=== PATIENT | female | born 1990 | race Asian ===

== ENCOUNTER → 2024-02-01 09:07 | Outpatient (REF) | payer OTHER, SELFPAY | LOC: PNTC 09:07 | PROVIDERS: ATTENDING PHYSICIAN Nurse Practitioner Family | DX: Z32.01 Encounter for pregnancy test, result positive (principal) | CPT/HCPCS: 76801; 76817 ==

== ENCOUNTER → 2024-02-22 07:14 | Outpatient (REF) | payer OTHER, SELFPAY | LOC: PNTC 07:14 | PROVIDERS: ATTENDING PHYSICIAN Obstetrics & Gynecology | DX: Z36.0 Encounter for antenatal screening for chromosomal anomalies (principal); Z36.82 Encounter for antenatal screening for nuchal translucency | CPT/HCPCS: 36415; 76801; 76813 ==

== ENCOUNTER → 2024-03-21 08:50 | Outpatient (REF) | payer OTHER, SELFPAY | LOC: PNTC 08:50 | PROVIDERS: ATTENDING PHYSICIAN Obstetrics & Gynecology | DX: Z36.0 Encounter for antenatal screening for chromosomal anomalies (principal); O09.519 Supervision of elderly primigravida, unspecified trimester | CPT/HCPCS: 76805 ==

== ENCOUNTER → 2024-04-18 08:13 | Outpatient (REF) | payer OTHER, SELFPAY | LOC: PNTC 08:13 | PROVIDERS: ATTENDING PHYSICIAN Obstetrics & Gynecology | DX: Z34.80 Encounter for supervision of other normal pregnancy, unspecified trimester (principal) | CPT/HCPCS: 76816; 76817 ==

== ENCOUNTER → 2024-06-20 07:42 | Outpatient (REF) | payer OTHER, SELFPAY | LOC: PNTC 07:42 | PROVIDERS: ATTENDING PHYSICIAN Obstetrics & Gynecology | DX: O26.849 Uterine size-date discrepancy, unspecified trimester (principal) | CPT/HCPCS: 76816 ==

== ENCOUNTER 2024-08-21 10:39 | Inpatient (IN) | payer OTHER, SELFPAY ==
[2024-08-21] MEDS: LR 1000 IV ×4 (11:09→17:50)
[2024-08-21 11:14] LABS: Hematocrit 36.9 % (37.0-47.0); Hemoglobin 13.0 g/dL (12.0-16.0); Mean Corp Hgb Conc. 35.2 g/dL (33.0-37.0); Mean Corpuscular Volume 98.1 fL (81.0-99.0); Nucleated Red Blood Cells % 0 %; Platelet Count 243 10^3/uL (130-400); Red Cell Dist. Width 13.6 % (11.5-14.5)
[2024-08-21] MEDS: SUBLIMAZE 100 MCG EPIDURAL (12:18)
[2024-08-21] MEDS: FENTANYL/BUPIVACAINE 100 EPIDURAL ×2 (12:19→21:03)
[2024-08-21] MEDS: PITOCIN 30 UNITS/NSS 500 ML IV (12:36)
[2024-08-21 13:01] VITALS: BMI 26.7
[2024-08-21 13:02] VITALS: BP 101/53
[2024-08-22] MEDS: MOTRIN 600 MG PO (01:44)
[2024-08-22 05:21] LABS: Hematocrit 33.2 % (37.0-47.0); Hemoglobin 11.7 g/dL (12.0-16.0)
[2024-08-22] MEDS: PRENATAL PLUS 1 TABLET PO (08:42)
[2024-08-22] MEDS: COLACE 100 MG PO ×2 (08:42→19:29)
[2024-08-22] MEDS: HYDROCORTISONE 2.5% OINTMENT 1 APPLIC TOPICAL (16:04)
[2024-08-22 17:15] LABS: Syphilis/T. pallidum Ab Reflex Negative (Negative)
[2024-08-23] MEDS: COLACE 100 MG PO (08:57)
[2024-08-23] MEDS: PRENATAL PLUS 1 TABLET PO (08:57)
== END 2024-08-23 11:30 | disposition home or self-care (01) | DRG 807 ==
LOC: LDRP 10:39
PROVIDERS: ADMITTING PHYSICIAN Obstetrics & Gynecology
PROC: 0KQM0ZZ Repair Perineum Muscle, Open Approach (ICD-10-PCS; 2024-08-21)
PROC: 10E0XZZ Delivery of Products of Conception, External Approach (ICD-10-PCS; 2024-08-21)
DX: O70.1 Second degree perineal laceration during delivery (principal); Z37.0 Single live birth; Z3A.38 38 weeks gestation of pregnancy
CPT/HCPCS: 36415; 85014; 85018; 85025; 86780; 86850; 86900; 86901; 88307